=== PATIENT | female | born 1990 | race Caucasian/White ===

== ENCOUNTER → 2019-04-01 | Day surgery (SDC) | payer BC ==
[~2019-04-01] MED LIST: HYDROmorphone 2 MG/ML VIAL IV PRN; IV RINGERS,LACTATED 1000ML 1,000 ML IV SCH; LIDOCAINE 1% PF 2 ML VIAL. ID PRN; MORPHINE SULFATE 2 MG/ML VIAL. IV PRN; ONDANSETRON PF 4 MG/2 ML VIAL. IV PRN; PROCHLORPERAZINE 10 MG/2 ML VIAL. IV PRN; PROPOFOL 20 ML IV ONE; fentaNYL PF VIAL 100 MCG/2 ML VIAL IV PRN
[2019-04-01 18:46] VITALS: BP 97/53
--- NOTE | 2019-04-02 17:26 | CONS ---
DATE OF CONSULTATION: 04/01/2019 REFERRING PHYSICIAN: [facility]. REASON FOR CONSULTATION: Possible foreign body. HISTORY OF PRESENT ILLNESS: A 28-year-old female with past medical history significant for borderline hypothyroidism is seen today after swallowing her retainer in the midafternoon. She did feel that it stuck in her esophagus. She ate some protein ____ passed through and subsequently came to the Emergency Room, which did reveal a flat plate KUB, which suggested the metallic foreign body without sharp edges which still retained within her stomach. With the discomfort in her esophagus and the fact of retained body, consultation is requested for management and possible extraction. Risks and benefits of procedure have been discussed with the patient including potential need for surgery if the foreign object cannot be removed or it passes beyond the duodenum as well as injury to the esophagus with the passage of the object and/or retrieval and she is willing to proceed. PAST MEDICAL HISTORY: Borderline hypothyroidism. ALLERGIES: NEOMYCIN. SOCIAL HISTORY: She does not smoke or drink. FAMILY HISTORY AND REVIEW OF SYSTEMS: As per records, no previous surgeries. PHYSICAL EXAMINATION: GENERAL: Reveals a well-nourished, well-developed female who is alert, cooperative, in no acute distress. VITAL SIGNS: Pulse is 80, respiratory rate is 15, blood pressure is 130/75. HEENT: Normocephalic, atraumatic head. Pupils and extraocular muscles are not tested. Sclerae anicteric. NECK: Supple. LUNGS: Clear. CARDIOVASCULAR: Reveals an S1, S2 without S3, S4 without crepitus. ABDOMEN: Reveals a soft abdomen, normal bowel sounds, without appreciable hepatosplenomegaly. EXTREMITIES: Reveal no cyanosis, clubbing, edema. IMPRESSION: Retained foreign body with possible dysphagia. We will recommend EGD with possible extraction. Risks and benefits have been discussed with the patient including risks of hemorrhage and perforation and is willing to proceed at this time. REGINO DIETRICH MD DR: JOSH/lalit JOB#: [id number] / [id number]
== END | disposition home or self-care (01) ==
LOC: SURG 17:43
PROVIDERS: ATTEND Internal Medicine Gastroenterology
DX: T18.2XXA Foreign body in stomach, initial encounter (principal); E03.9 Hypothyroidism, unspecified; Z88.8 Allergy status to other drugs, medicaments and biological substances; Z88.0 Allergy status to penicillin
CPT/HCPCS: 43247; C1757; J2704